=== PATIENT | female | born 1960 | race Two or more races ===

== ENCOUNTER 2017-10-12 16:32 | Inpatient (IN) | payer MEDICAID ==
--- NOTE | 2017-10-12 17:07 | ED Physician Chart ---
ED Chief Complaint/HPI - Patient Information Date Seen:: 10/12/17 Time Seen:: 17:00 Chief Complaint:: Fever History of Present Illness:: onset x 2 days of fever, chills, weakness, and palpitations; no report of trauma , H/As, S/T, neck pain, C/P, SOB, Abd. Pain, A/N/V/D/C, or urinary s/s Allergies:: Allergies Allergy/AdvReac Type Severity Reaction Status Date / Time codeine Allergy Verified 10/12/17 16:57 Penicillins [PCN] Allergy Verified 10/12/17 16:57 Historian:: Patient, EMS Review:: Nurse's Note Reviewed, Old Chart Reviewed, EMS run form Reviewed <Vinod Loera - Last Filed: 10/12/17 17:46> - Patient Information Allergies:: Allergies Allergy/AdvReac Type Severity Reaction Status Date / Time codeine Allergy Verified 10/12/17 16:57 Penicillins [PCN] Allergy Verified 10/12/17 16:57 <Dia Cifuentes - Last Filed: 10/15/17 20:23> ED Review of Systems - Review of Systems General/Constitutional: Fever, Chills, No weight loss, Weakness, No diaphoresis , No edema, No loss of appetite Skin: No skin lesions, No rash, No bruising Head: No headache, No light-headedness Eyes: No loss of vision, No pain, No diplopia ENT: No earache, No nasal drainage, No sore throat, No tinnitus Neck: No neck pain, No swelling, No thyromegaly, No stiffness, No mass noted Cardio Vascular: No chest pain, Palpitations, No PND, No orthopnea, No edema Pulmonary: No SOB, No cough, No sputum, No wheezing GI: No nausea, No vomiting, No diarrhea, No pain, No melena, No hematochezia, No constipation, No hematemesis G/U: No dysuria, No frequency, No hematuria, No nacturia Product Marketing Executive: No vaginal discharge, No abnormal vaginal bleed, No contraction Musculoskeletal: No bone or joint pain, No back pain, No muscle pain Endocrine: No polyuria, No polydipsia Psychiatric: No prior psych history, No depression, No anxiety, No suicidal ideation, No homicidal ideation, No auditory hallucination, No visual hallucination Hematopoietic: No bruising, No lymphadenopathy Allergic/Immuno: No urticaria, No angioedema Neurological: No syncope, No focal symptoms, Weakness, No paresthesia, No headache, No seizure, No dizziness, Confusion, No vertigo <Vinod Loera - Last Filed: 10/12/17 17:46> ED Past Medical History - Past Medical History Obtainable: Yes Past Medical History: HTN, DM, CAD, PUD/GERD, Seizures, Dementia, Other (CP) Family History: HTN Social History: Non Smoker, No Alcohol, No Drug Use, Single, Care Facility Surgical History: PEG/GTube Psychiatricy History: Dementia Medication: Reviewed <Vinod Loera - Last Filed: 10/12/17 17:46> Family Medical History - Family Member Mother History Unknown: Yes <Vinod Loera - Last Filed: 10/12/17 17:46> ED Physical Exam - Physical Examination General/Constitutional: Awake, Well-developed, well-nourished, Alert, No distress, GCS 15, Non-toxic appearing, Ambulatory Head: Atraumatic Eyes: Lids, conjuctiva normal, PERRL, EOMI Skin: Nl inspection, No rash, No skin lesions, No ecchymosis, Well hydrated, No lymphadenopathy ENMT: External ears, nose nl, TM canals nl, Nasal exam nl, Lips, teeth, gums nl , Oropharynx nl, Tonsils nl Neck: Nontender, Full ROM w/o pain, No JVD, No nuchal rigidity, No bruit, No mass, No stridor Respiratory: Nl effort/Exclusion, Clear to Auscultation, No Wheeze/Rhonchi/Rales Cardio Vascular: No murmur, gallop, rubs, NL S1 S2, Carotid/Femoral/Distal pulses equal bilaterally Other Cardio Vascular comments:: Irregular Irregular Rhythm GI: No tenderness/rebounding/guarding, No organomegaly, No hernia, Normal BS's, Nondistended, No mass/bruits, No McBurney tenderness : No CVA tenderness Extremities: No tenderness or effusion, Full ROM, normal strength in all extremities, No edema, Normal digits & nails Neuro/Psych: Alert/oriented, DTR's symmetric, Normal sensory exam, Normal motor strength, Judgement/insight normal, Mood normal, Normal gait, No focal deficits Misc: Normal back, No paraspinal tenderness <Vinod Loera - Last Filed: 10/12/17 17:46> ED Labs/Radiology/EKG Results - EKG Interpretations EKG Time:: 17:14 Rate & Rhythm: 147; Atrial Fibrillation Comments:: non-specific st-t changes <Vinod Loera - Last Filed: 10/12/17 17:46> - Lab Results Results: Laboratory Tests 10/12/17 10/12/17 10/12/17 16:48 17:25 17:25 WBC 4.3 L RBC 3.41 L Hgb 11.3 L Hct 33.2 L MCV 97.4 MCH 33.0 H MCHC Differential 33.9 RDW 12.8 Plt Count 88 L MPV 11.5 Neutrophils % 73.3 Lymphocytes % 15.8 L Monocytes % 8.7 Eosinophils % 1.0 Basophils % 1.2 PT 9.9 INR 0.95 PTT (Actin FS) 30.3 Sodium Potassium Chloride Carbon Dioxide Anion Gap BUN Creatinine Est GFR ( Amer) Est GFR (Non-Af Amer) BUN/Creatinine Ratio Glucose Whole Bld Lactic Acid Calcium Total Bilirubin AST ALT Alkaline Phosphatase Creatine Kinase Troponin I Total Protein Albumin Globulin Albumin/Globulin Ratio Amylase Lipase Serum , Qual NEGATIVE Urine Source Urine Color Urine Clarity Urine pH Ur Specific [place] Urine Protein Urine Glucose (UA) Urine Ketones Urine Blood Urine Nitrate Urine Bilirubin Urine Urobilinogen Ur Leukocyte Esterase Urine RBC Urine WBC Ur Epithelial Cells Urine Bacteria 10/12/17 10/12/17 10/12/17 17:25 17:25 17:53 WBC RBC Hgb Hct MCV MCH MCHC Differential RDW Plt Count MPV Neutrophils % Lymphocytes % Monocytes % Eosinophils % Basophils % PT INR PTT (Actin FS) Sodium 149 H Potassium 4.1 Chloride 108 H Carbon Dioxide 34.0 H Anion Gap 11.1 BUN 79 H Creatinine 2.7 H Est GFR ( Amer) 23.4 Est GFR (Non-Af Amer) 19.3 BUN/Creatinine Ratio 29.3 Glucose 138 H Whole Bld Lactic Acid 1.17 Calcium 9.9 Total Bilirubin 0.5 AST 13 ALT 15 Alkaline Phosphatase 72 Creatine Kinase 11 L Troponin I 0.02 Total Protein 7.5 Albumin 3.2 L Globulin 4.3 Albumin/Globulin Ratio 0.7 L Amylase 35 Lipase 26 Serum , Qual Urine Source Urine Color Urine Clarity Urine pH Ur Specific [place] Urine Protein Urine Glucose (UA) Urine Ketones Urine Blood Urine Nitrate Urine Bilirubin Urine Urobilinogen Ur Leukocyte Esterase Urine RBC Urine WBC Ur Epithelial Cells Urine Bacteria 10/12/17 19:30 WBC RBC Hgb Hct MCV MCH MCHC Differential RDW Plt Count MPV Neutrophils % Lymphocytes % Monocytes % Eosinophils % Basophils % PT INR PTT (Actin FS) Sodium Potassium Chloride Carbon Dioxide Anion Gap BUN Creatinine Est GFR ( Amer) Est GFR (Non-Af Amer) BUN/Creatinine Ratio Glucose Whole Bld Lactic Acid Calcium Total Bilirubin AST ALT Alkaline Phosphatase Creatine Kinase Troponin I Total Protein Albumin Globulin Albumin/Globulin Ratio Amylase Lipase Serum , Qual Urine Source CLEAN C Urine Color YELLOW Urine Clarity HAZY Urine pH 8.5 Ur Specific [place] 1.015 Urine Protein 100 H Urine Glucose (UA) NEGATIVE Urine Ketones NEGATIVE Urine Blood LARGE H Urine Nitrate NEGATIVE Urine Bilirubin NEGATIVE Urine Urobilinogen 0.2 Ur Leukocyte Esterase LARGE H Urine RBC 5-10 H Urine WBC 10-25 H Ur Epithelial Cells FEW Urine Bacteria 3+ H - Radiology Results Results: CXR: left lower lung basal density, increased lung markings, cardiomegaly <Dia Cifuentes - Last Filed: 10/15/17 20:23> ED Septic Shock - . Is Septic Shock (SBP<90, OR Lactate>4 mmol\L) present?: No <Vinod Loera - Last Filed: 10/12/17 17:46> - . Is Septic Shock (SBP<90, OR Lactate>4 mmol\L) present?: No <Dia Cifuentes - Last Filed: 10/15/17 20:23> ED Reassessment (Disposition) - Reassessment Reassessment Condition:: Improved - Diagnosis Diagnosis:: Fever; Palpitations; Atrial Fibrillation; Dehydration; Leukopenia; Anemia; Pre- Renal Azotemia; Hypernatremia <Vinod Loera - Last Filed: 10/12/17 17:46> - Reassessment Reassessment:: Urinary tract infection - Patient Disposition Discharge/Transfer:: Acute Care w/in this hosp Admitting Medical Physician:: Earl Stack <Dia Cifuentes - Last Filed: 10/15/17 20:23>
[2017-10-12 17:35] LABS: % BASOPHILS 1.2 % (0.0-2.0); % LYMPHOCYTES 15.8 % (20.0-50.0); % MONOCYTES 8.7 % (2.0-10.0); % NEUTROPHILS 73.3 % (40.0-80.0); BASOPHILE ABSOLUTE 0.1 Th/cumm (0-0.2); HEMATOCRIT 33.2 % (41.0-60); HEMOGLOBIN 11.3 gm/dL (12-16); LYMPHOCYTE ABSOLUTE 0.7 Th/cmm (1.5-3.0); MEAN CELL VOLUME 97.4 fl (81-100); MEAN CORPUSCULAR HGB CONC 33.9 pg (28.0-36.0); MEAN PLATELET VOLUME 11.5 fl; MONOCYTE ABSOLUTE 0.4 Th/cmm (0.3-1.0); NEUTROPHILE ABSOLUTE 3.1 Th/cmm (1.8-8.0); PLATELET COUNT 88 Th/cmm (150-400); RED BLOOD COUNT 3.41 Mil/cmm (3.80-5.10); RED CELL DISTRIBUTION WIDTH 12.8 % (11.5-20.0); WHITE BLOOD COUNT 4.3 Th/cmm (4.8-10.8)
[2017-10-12 17:44] LABS: INR 0.95 (0.5-1.4); PROTHROMBIN TIME (TEST) 9.9 SECONDS (9.5-11.5)
[2017-10-12 17:47] LABS: ALB/GLOB RATIO 0.7 (1.0-1.8); ALBUMIN 3.2 gm/dL (3.7-5.3); ANION GAP 11.1 (7.0-16.0); BILIRUBIN,TOTAL 0.5 mg/dL (0.3-1.0); CALCIUM SERUM 9.9 mg/dL (8.6-10.3); CREATININE - SERUM 2.7 mg/dL (0.6-1.2); GFR AFRICAN-AMERICAN 23.4 ml/min (>90); GFR NON AFRICAN-AMERICAN 19.3 ml/min; POTASSIUM SERUM 4.1 mEq/L (3.5-5.1); TOTAL PROTEIN,SERUM 7.5 gm/dL (6.0-8.3)
[2017-10-12] MEDS ORDERED: Sodium Chloride 0.9% 500 ML IV ONE (17:53)
[2017-10-12] MEDS ORDERED: Diltiazem 5 mg/mL 5mL Vial IVP STA (17:54)
[2017-10-12 17:56] LABS: TROP I 0.02 ng/mL (0.01-0.05)
[2017-10-12] MEDS ORDERED: Diltiazem 5 mg/mL 5mL Vial IVP ONE (18:08)
[2017-10-12 18:14] LABS: AMYLASE SERUM 35 U/L (29-103); LIPASE 26 U/L (11-82)
[2017-10-12] MEDS ORDERED: Sodium Chloride 0.9% 1,000 ML IV ONE (18:17)
[2017-10-12] MEDS ORDERED: Levofloxacin 750mg/150mL 750 MG/150 ML BAG IV ONE ×2 (19:16→19:22)
[2017-10-12 19:39] LABS: URINE SOURCE CLEAN C
[2017-10-12 19:41] LABS: URINE BILIRUBIN NEGATIVE (NEGATIVE); URINE BLOOD LARGE (NEGATIVE); URINE GLUCOSE (UA) NEGATIVE (NEGATIVE); URINE KETONE NEGATIVE (NEGATIVE); URINE LEUKOCYTE ESTERASE LARGE (NEGATIVE); URINE MICROSCOPIC INDICATED? YES; URINE NITRATE NEGATIVE (NEGATIVE); URINE PH 8.5 (4.6 - 8.0); URINE PROTEIN 100 mg/dL (NEGATIVE); URINE UROBILINOGEN 0.2 E.U./dL (0.2 - 1.0)
[2017-10-12 19:45] LABS: URINE CLARITY HAZY (CLEAR); URINE COLOR YELLOW
[2017-10-12 19:47] LABS: URINE BACTERIA 3+ /hpf (NONE SEEN); URINE EPITHELIAL CELLS FEW /lpf (FEW)
[2017-10-12] MEDS ORDERED: guaiFENesin 200 MG/10 ML UDC PO PRN (20:44)
[2017-10-12] MEDS ORDERED: Maalox 30 mL Cup PO PRN (20:44)
[2017-10-12] MEDS ORDERED: Albuterol Nebulizer 2.5mg/3mL HHN PRN (20:44)
[2017-10-12] MEDS ORDERED: D5-0.9%NS 1,000 ML IV SCH (20:45)
[2017-10-12] MEDS: D5-0.45NS 1,000 ML IV SCH (23:28)
[2017-10-13] MEDS ORDERED: Pneumococcal Vaccine 0.5 mL Vial IM ONE (00:23)
[2017-10-13 03:54] VITALS: BP 116/67
--- NOTE | 2017-10-13 08:31 | Diagnostic Imaging Report ---
CHEST X-RAY: AP view INDICATION: Fever COMPARISON: None FINDINGS: Increased interstitial lung markings are noted suggestive of chronic lung changes. Left lower lungs with subsegmental atelectasis is noted. Slight increased left basal density is noted. Suboptimal lung volume the noted. Cardiomegaly is noted with atherosclerosis. Degenerative changes of spine are noted with scoliosis. Degenerative changes of the shoulders are also noted. IMPRESSION: Increased interstitial lung markings suggestive of chronic lung changes. No evidence of CHF. Left lower lung zone subsegmental atelectasis versus scarring. Left basal density probably related to superimposition of soft tissues. A small left pleural effusion is considered less likely. Faint Infiltrate is also considered less likely. Cardiomegaly and atherosclerotic vascular disease.
[2017-10-13] MEDS ORDERED: Multivitamin w/ Minerals 15 mL UDC GT SCH (09:00)
[2017-10-13] MEDS: Multivitamin w/ Minerals Tab GT SCH (09:04)
[2017-10-13] MEDS: D5-0.45NS 1,000 ML IV SCH ×2 (12:24→21:22)
--- NOTE | 2017-10-13 13:32 | Internal Medicine Prog Note ---
Internal Medicine Subjective - Subjective Service Date: 10/13/17 ([id number]) Internal Medicine Objective - Results Result Diagrams: 10/12/17 17:25 10/12/17 17:25 Recent Labs: Laboratory Last Values WBC 4.3 Th/cmm (4.8-10.8) L 10/12/17 17:25 RBC 3.41 Mil/cmm (3.80-5.10) L 10/12/17 17:25 Hgb 11.3 gm/dL (12-16) L 10/12/17 17:25 Hct 33.2 % (41.0-60) L 10/12/17 17:25 MCV 97.4 fl (81-100) 10/12/17 17:25 MCH 33.0 pg (27.0-31.0) H 10/12/17 17:25 MCHC Differential 33.9 pg (28.0-36.0) 10/12/17 17:25 RDW 12.8 % (11.5-20.0) 10/12/17 17:25 Plt Count 88 Th/cmm (150-400) L 10/12/17 17:25 MPV 11.5 fl 10/12/17 17:25 Neutrophils % 73.3 % (40.0-80.0) 10/12/17 17:25 Lymphocytes % 15.8 % (20.0-50.0) L 10/12/17 17:25 Monocytes % 8.7 % (2.0-10.0) 10/12/17 17:25 Eosinophils % 1.0 % (0.0-5.0) 10/12/17 17:25 Basophils % 1.2 % (0.0-2.0) 10/12/17 17:25 PT 9.9 SECONDS (9.5-11.5) 10/12/17 17:25 INR 0.95 (0.5-1.4) 10/12/17 17:25 PTT (Actin FS) 30.3 SECONDS (26.0-38.0) 10/12/17 17:25 Sodium 149 mEq/L (136-145) H 10/12/17 17:25 Potassium 4.1 mEq/L (3.5-5.1) 10/12/17 17:25 Chloride 108 mEq/L (98-107) H 10/12/17 17:25 Carbon Dioxide 34.0 mEq/L (21.0-31.0) H 10/12/17 17:25 Anion Gap 11.1 (7.0-16.0) 10/12/17 17:25 BUN 79 mg/dL (7-25) H 10/12/17 17:25 Creatinine 2.7 mg/dL (0.6-1.2) H 10/12/17 17:25 Est GFR ( Amer) 23.4 ml/min (>90) 10/12/17 17:25 Est GFR (Non-Af Amer) 19.3 ml/min 10/12/17 17:25 BUN/Creatinine Ratio 29.3 10/12/17 17:25 Glucose 138 mg/dL (70-105) H 10/12/17 17:25 Whole Bld Lactic Acid 1.17 mmol/L (0.60-1.99) 10/12/17 17:25 Calcium 9.9 mg/dL (8.6-10.3) 10/12/17 17:25 Total Bilirubin 0.5 mg/dL (0.3-1.0) 10/12/17 17:25 AST 13 U/L (13-39) 10/12/17 17:25 ALT 15 U/L (7-52) 10/12/17 17:25 Alkaline Phosphatase 72 U/L (34-104) 10/12/17 17:25 Creatine Kinase 11 U/L (30-223) L 10/12/17 17:25 Troponin I 0.02 ng/mL (0.01-0.05) 10/12/17 17:25 Total Protein 7.5 gm/dL (6.0-8.3) 10/12/17 17:25 Albumin 3.2 gm/dL (3.7-5.3) L 10/12/17 17:25 Globulin 4.3 gm/dL 10/12/17 17:25 Albumin/Globulin Ratio 0.7 (1.0-1.8) L 10/12/17 17:25 Amylase 35 U/L (29-103) 10/12/17 17:53 Lipase 26 U/L (11-82) 10/12/17 17:53 Serum , Qual NEGATIVE (NEGATIVE) 10/12/17 16:48 Urine Source CLEAN C 10/12/17 19:30 Urine Color YELLOW 10/12/17 19:30 Urine Clarity HAZY (CLEAR) 10/12/17 19:30 Urine pH 8.5 (4.6 - 8.0) 10/12/17 19:30 Ur Specific [place] 1.015 (1.005-1.030) 10/12/17 19:30 Urine Protein 100 mg/dL (NEGATIVE) H 10/12/17 19:30 Urine Glucose (UA) NEGATIVE mg/dL (NEGATIVE) 10/12/17 19:30 Urine Ketones NEGATIVE mg/dL (NEGATIVE) 10/12/17 19:30 Urine Blood LARGE (NEGATIVE) H 10/12/17 19:30 Urine Nitrate NEGATIVE (NEGATIVE) 10/12/17 19:30 Urine Bilirubin NEGATIVE (NEGATIVE) 10/12/17 19:30 Urine Urobilinogen 0.2 E.U./dL (0.2 - 1.0) 10/12/17 19:30 Ur Leukocyte Esterase LARGE (NEGATIVE) H 10/12/17 19:30 Urine RBC 5-10 /hpf (0-5) H 10/12/17 19:30 Urine WBC 10-25 /hpf (0-5) H 10/12/17 19:30 Ur Epithelial Cells FEW /lpf (FEW) 10/12/17 19:30 Urine Bacteria 3+ /hpf (NONE SEEN) H 10/12/17 19:30 - Physical Exam Vitals and I&O: Vital Signs Temp 97.0 F 10/13/17 12:00 Pulse 118 10/13/17 12:00 Resp 17 10/13/17 12:00 BP 117/78 10/13/17 12:00 Pulse Ox 98 10/13/17 12:00 Intake & Output 10/12/17 10/13/17 10/13/17 18:59 06:59 18:59 Intake Total 150 1000 Balance 150 1000 Weight (lbs) 185 lb 188 lb Intake: Intake, IV Amount 150 1000 D5-0.45NS 1,000 ml @ 100 1000 mls/hr IV .Q10H [facility] Rx#: [id number] Levofloxacin 750mg/150mL 150 750 mg In 150 ml @ 100 mls/hr IV X1 ONE Rx#: [id number] Other: Weight Source Patient stated Patient stated Active Medications: Current Medications Acetaminophen (Tylenol) 650 mg PO Q4H PRN PRN Reason: PAIN/TEM>100 Stop: 12/11/17 21:08 Acetaminophen (Tylenol) 650 mg PO Q4H PRN PRN Reason: Pain Or Fever above 101 Stop: 12/11/17 20:46 Al Hydrox/Mg Hydrox/Simethicone (Maalox) 30 ml PO Q6H PRN PRN Reason: Dyspepsia Stop: 12/11/17 20:43 Albuterol Sulfate (Albuterol 2.5mg/3ml Neb Ud) 2.5 mg HHN Q2HRT PRN PRN Reason: Shortness of Breath or Wheeze Stop: 12/11/17 20:43 Diltiazem HCl (Cardizem) 90 mg PO Q8HR [facility] Stop: 12/12/17 20:59 Docusate Sodium (Colace) 100 mg PO BID [facility] Stop: 12/12/17 08:59 Last Admin: 10/13/17 09:04 Dose: 100 mg Ferrous Sulfate (Iron) 450 mg GT DAILY [facility] Stop: 12/12/17 13:59 Guaifenesin (Robitussin) 200 mg PO Q4HR PRN PRN Reason: Cough or Congestion Stop: 12/11/17 20:43 Levofloxacin (Levaquin Pb) 500 mg in 100 mls @ 100 mls/hr IV Q48HR [facility] Stop: 12/13/17 19:59 Dextrose/Sodium Chloride (D5-0.45ns) 1,000 mls @ 100 mls/hr IV .Q10H [facility] Stop: 12/11/17 20:59 Last Admin: 10/13/17 12:24 Dose: 100 mls/hr Lacosamide (Vimpat) 200 mg GT BID [facility] Stop: 12/12/17 16:59 Lorazepam (Ativan) 1 mg IV Q4H PRN; Protocol PRN Reason: Seizure Stop: 12/11/17 20:43 Ondansetron HCl (Zofran) 4 mg IV Q8H PRN PRN Reason: Nausea / Vomiting Stop: 12/11/17 20:46 Pantoprazole Sodium (Protonix) 40 mg GT DAILY [facility] Stop: 12/12/17 13:59 Quetiapine Fumarate (Seroquel) 25 mg GT DAILY [facility]; Protocol Stop: 12/12/17 08:59 Last Admin: 10/13/17 09:04 Dose: 25 mg Senna (Senna) 17.2 mg GT HS [facility] Stop: 12/11/17 20:59 Last Admin: 10/12/17 23:29 Dose: 17.2 mg
[2017-10-13] MEDS: Pantoprazole 40 mg/Packet GT SCH (13:35)
[2017-10-13] MEDS: Ferrous Sulfate 300 MG/5 ML UDC GT SCH (13:35)
[2017-10-13] MEDS ORDERED: Metoprolol tartrate 1 mg/ml 5mL Amp IV PRN (14:47)
--- NOTE | 2017-10-13 14:51 | History & Physical ---
ADMIT DATE: 10/13/2017 CHIEF COMPLAINT: Fever. HISTORY OF PRESENT ILLNESS: This is a 56-year-old female who is a resident of [facility] who has a 2-day history of fevers associated with weakness. For further management, the patient is now admitted here to the telemetry unit. PAST MEDICAL HISTORY: Hypertension, diabetes, CAD, GERD, seizures, dementia, cerebral palsy, and AFib. FAMILY HISTORY: Noncontributory. SOCIAL HISTORY: The patient is a long term resident requiring 24-hour nursing care. PAST SURGICAL HISTORY: PEG. MEDICATIONS: Please see medication list. REVIEW OF SYSTEMS: Unable to obtain, the patient is nonverbal. PHYSICAL EXAMINATION: GENERAL: The patient is well-developed, well-nourished, no apparent distress. VITAL SIGNS: Temperature 97.0, heart rate 118, blood pressure 117/78, respirations 17, O2 98%. HEENT: Head normocephalic, atraumatic. NECK: Supple. No mass. LUNGS: Clear bilaterally. HEART: Regular rate and rhythm. ABDOMEN: Soft, nontender, nondistended. LABORATORY DATA: WBC 4.3, H and H 11.3 and 33.2, platelet 88. Sodium 149, potassium 4.1, chloride 108, BUN 79, creatinine 2.7, glucose of 138. The patient had a urinalysis done, positive for UTI. DIAGNOSTICS: The patient had a chest x-ray done, impression is increased interstitial lung marking suggestive of chronic lung changes, no evidence of CHF, left lower lung zones subsegmental atelectasis versus scarring, left basal density probably related to superimposition of the soft tissue. Small left pleural effusion considered less likely. Faint infiltrate is also considered less likely, cardiomegaly and atherosclerotic vascular disease. ASSESSMENT: Acute urinary tract infection, sepsis, possible pneumonia, tachycardia, history of atrial fibrillation, acute renal insufficiency, rule out dehydration, leukopenia, acute urinary tract infection, mild protein-calorie malnutrition, cerebral palsy, hypertension, diabetes, GERD, seizures, dementia. PLAN: The patient will be admitted to the telemetry unit. We will get metal dresser on the case due to aggressive IV fluids for hydration. If the patient's BUN and creatinine does not improve with IV fluids, we will add Nephrology on the case. In the meantime, we will order a renal ultrasound. We will keep the patient on empiric IV antibiotics of Levaquin. We will send urine for culture. We will continue to follow this patient. [facility]# [id number]
[2017-10-13] MEDS ORDERED: Metoprolol tartrate 1 mg/ml 5mL Amp IV ONE (15:00)
[2017-10-13] MEDS: Diltiazem 30 mg Tab PO SCH (17:10)
[2017-10-13] MEDS ORDERED: Diltiazem 30 mg Tab PO SCH (21:00)
--- NOTE | 2017-10-13 22:34 | Consultation ---
DATE OF CONSULTATION: 10/12/[address] Stack. HISTORY AND PHYSICAL: This is a 56-year-old female patient with cerebral palsy, came to the Emergency Room because of weakness, tiredness, fever. The patient had uncontrolled atrial fibrillation and hence cardiac consult is requested. The patient is a poor historian. PAST MEDICAL HISTORY: Cerebral palsy, hypertension and atrial fibrillation, peptic ulcer disease, seizure disorder, cerebral palsy, dementia, anemia. FAMILY HISTORY: Unremarkable. SOCIAL HISTORY: No history of smoking, alcohol abuse. ALLERGIES: No known allergies. PHYSICAL EXAMINATION: VITAL SIGNS: Blood pressure 120/80; pulse 130, irregular; and respirations 28. HEAD: Normocephalic. No lumps or bumps. EYES: Pupils equal, reactive to light. Fundi show AV nicking, sclerae white, conjunctivae pink. NECK: Carotid 2+. Normal upstroke. JVD flat. Thyroid not palpable. LYMPH NODES: Not palpable. CHEST: Shows increased AP diameter. No kyphosis, scoliosis. LUNGS: Bilateral rales. Decreased breath sounds in both bases. HEART: PMI sixth intercostal space with [id number] line. EXTREMITIES: Peripheral pulse is 1+, pedal edema 1+. CLINICAL DIAGNOSES: 1. Atrial fibrillation with rapid ventricular response. 2. Cerebral palsy. 3. Hypertension, peptic ulcer disease, seizure disorder, depression, iron-deficiency anemia, osteoporosis. PLAN: The patient to continue present medication. Continue present care. The patient will be given Cardizem, Lopressor IV for controlling the blood pressure, also get an echocardiogram. JOB# [id number]
[2017-10-14] MEDS: Diltiazem 30 mg Tab PO SCH ×4 (00:59→18:15)
[2017-10-14 05:02] LABS: % BASOPHILS 0.6 % (0.0-2.0); % EOSINOPHILS 3.5 % (0.0-5.0); % LYMPHOCYTES 11.2 % (20.0-50.0); % MONOCYTES 4.8 % (2.0-10.0); % NEUTROPHILS 79.9 % (40.0-80.0); EOSINOPHILE ABSOLUTE 0.2 Th/cmm (0.1-0.4); HEMATOCRIT 28.2 % (41.0-60); HEMOGLOBIN 9.5 gm/dL (12-16); LYMPHOCYTE ABSOLUTE 0.5 Th/cmm (1.5-3.0); MEAN CELL VOLUME 98.3 fl (81-100); MEAN CORPUSCULAR HEMOGLOBIN 33.3 pg (27.0-31.0); MEAN CORPUSCULAR HGB CONC 33.9 pg (28.0-36.0); MEAN PLATELET VOLUME 12.8 fl; MONOCYTE ABSOLUTE 0.2 Th/cmm (0.3-1.0); PLATELET COUNT 95 Th/cmm (150-400); RED BLOOD COUNT 2.86 Mil/cmm (3.80-5.10); RED CELL DISTRIBUTION WIDTH 12.6 % (11.5-20.0); WHITE BLOOD COUNT 4.9 Th/cmm (4.8-10.8)
[2017-10-14 05:45] LABS: CALCIUM SERUM 9.3 mg/dL (8.6-10.3); GFR NON AFRICAN-AMERICAN 27.3 ml/min; MAGNESIUM 2.2 mg/dL (1.9-2.7)
[2017-10-14] MEDS: Ferrous Sulfate 300 MG/5 ML UDC GT SCH (08:31)
[2017-10-14] MEDS: Multivitamin w/ Minerals Tab GT SCH (08:32)
[2017-10-14] MEDS: Pantoprazole 40 mg/Packet GT SCH (08:32)
[2017-10-14] MEDS: D5-0.45NS 1,000 ML IV SCH ×2 (08:33→13:56)
--- NOTE | 2017-10-14 12:41 | Internal Medicine Prog Note ---
Internal Medicine Subjective - Subjective Service Date: 10/14/17 Patient seen and examined:: with staff Patient is:: awake, non-verbal Per staff patient has:: tolerating meds Internal Medicine Objective - Results Result Diagrams: 10/14/17 04:45 10/14/17 04:45 Recent Labs: Laboratory Last Values WBC 4.9 Th/cmm (4.8-10.8) 10/14/17 04:45 RBC 2.86 Mil/cmm (3.80-5.10) L 10/14/17 04:45 Hgb 9.5 gm/dL (12-16) L 10/14/17 04:45 Hct 28.2 % (41.0-60) L 10/14/17 04:45 MCV 98.3 fl (81-100) 10/14/17 04:45 MCH 33.3 pg (27.0-31.0) H 10/14/17 04:45 MCHC Differential 33.9 pg (28.0-36.0) 10/14/17 04:45 RDW 12.6 % (11.5-20.0) 10/14/17 04:45 Plt Count 95 Th/cmm (150-400) L 10/14/17 04:45 MPV 12.8 fl 10/14/17 04:45 Neutrophils % 79.9 % (40.0-80.0) 10/14/17 04:45 Lymphocytes % 11.2 % (20.0-50.0) L 10/14/17 04:45 Monocytes % 4.8 % (2.0-10.0) 10/14/17 04:45 Eosinophils % 3.5 % (0.0-5.0) 10/14/17 04:45 Basophils % 0.6 % (0.0-2.0) 10/14/17 04:45 PT 9.9 SECONDS (9.5-11.5) 10/12/17 17:25 INR 0.95 (0.5-1.4) 10/12/17 17:25 PTT (Actin FS) 30.3 SECONDS (26.0-38.0) 10/12/17 17:25 Sodium 147 mEq/L (136-145) H 10/14/17 04:45 Potassium 4.0 mEq/L (3.5-5.1) 10/14/17 04:45 Chloride 112 mEq/L (98-107) H 10/14/17 04:45 Carbon Dioxide 31.0 mEq/L (21.0-31.0) 10/14/17 04:45 Anion Gap 8.0 (7.0-16.0) 10/14/17 04:45 BUN 67 mg/dL (7-25) H 10/14/17 04:45 Creatinine 2.0 mg/dL (0.6-1.2) H 10/14/17 04:45 Est GFR ( Amer) 33.0 ml/min (>90) 10/14/17 04:45 Est GFR (Non-Af Amer) 27.3 ml/min 10/14/17 04:45 BUN/Creatinine Ratio 33.5 10/14/17 04:45 Glucose 136 mg/dL (70-105) H 10/14/17 04:45 Whole Bld Lactic Acid 1.17 mmol/L (0.60-1.99) 10/12/17 17:25 Calcium 9.3 mg/dL (8.6-10.3) 10/14/17 04:45 Magnesium 2.2 mg/dL (1.9-2.7) 10/14/17 04:45 Total Bilirubin 0.5 mg/dL (0.3-1.0) 10/12/17 17:25 AST 13 U/L (13-39) 10/12/17 17:25 ALT 15 U/L (7-52) 10/12/17 17:25 Alkaline Phosphatase 72 U/L (34-104) 10/12/17 17:25 Ammonia 39 umol/L (16-53) 10/14/17 06:00 Creatine Kinase 11 U/L (30-223) L 10/12/17 17:25 Troponin I 0.02 ng/mL (0.01-0.05) 10/12/17 17:25 B-Natriuretic Peptide 188.0 pg/mL (5.0-100.0) H 10/14/17 04:45 Total Protein 7.5 gm/dL (6.0-8.3) 10/12/17 17:25 Albumin 3.2 gm/dL (3.7-5.3) L 10/12/17 17:25 Globulin 4.3 gm/dL 10/12/17 17:25 Albumin/Globulin Ratio 0.7 (1.0-1.8) L 10/12/17 17:25 Amylase 35 U/L (29-103) 10/12/17 17:53 Lipase 26 U/L (11-82) 10/12/17 17:53 Serum , Qual NEGATIVE (NEGATIVE) 10/12/17 16:48 Urine Source CLEAN C 10/12/17 19:30 Urine Color YELLOW 10/12/17 19:30 Urine Clarity HAZY (CLEAR) 10/12/17 19:30 Urine pH 8.5 (4.6 - 8.0) 10/12/17 19:30 Ur Specific [place] 1.015 (1.005-1.030) 10/12/17 19:30 Urine Protein 100 mg/dL (NEGATIVE) H 10/12/17 19:30 Urine Glucose (UA) NEGATIVE mg/dL (NEGATIVE) 10/12/17 19:30 Urine Ketones NEGATIVE mg/dL (NEGATIVE) 10/12/17 19:30 Urine Blood LARGE (NEGATIVE) H 10/12/17 19:30 Urine Nitrate NEGATIVE (NEGATIVE) 10/12/17 19:30 Urine Bilirubin NEGATIVE (NEGATIVE) 10/12/17 19:30 Urine Urobilinogen 0.2 E.U./dL (0.2 - 1.0) 10/12/17 19:30 Ur Leukocyte Esterase LARGE (NEGATIVE) H 10/12/17 19:30 Urine RBC 5-10 /hpf (0-5) H 10/12/17 19:30 Urine WBC 10-25 /hpf (0-5) H 10/12/17 19:30 Ur Epithelial Cells FEW /lpf (FEW) 10/12/17 19:30 Urine Bacteria 3+ /hpf (NONE SEEN) H 10/12/17 19:30 - Physical Exam Vitals and I&O: Vital Signs Temp 97.0 F 10/14/17 11:59 Pulse 65 10/14/17 11:59 Resp 18 10/14/17 11:59 BP 112/63 10/14/17 11:59 Pulse Ox 93 10/14/17 11:59 Intake & Output 10/13/17 10/14/17 10/14/17 18:59 06:59 18:59 Intake Total 2323.333 288.333 520 Balance 2323.333 288.333 520 Weight (lbs) 188 lb 188 lb Intake: Intake, IV Amount 1608.333 288.333 D5-0.45NS 1,000 ml @ 100 1608.333 288.333 mls/hr IV .Q10H [facility] Rx#: [id number] Tube Feeding 715 520 Other: # Voids 3 3 Weight Source Estimated Bedscale Active Medications: Current Medications Acetaminophen (Tylenol) 650 mg PO Q4H PRN PRN Reason: PAIN/TEMP >100 Stop: 12/11/17 21:08 Al Hydrox/Mg Hydrox/Simethicone (Maalox) 30 ml PO Q6H PRN PRN Reason: Dyspepsia Stop: 12/11/17 20:43 Albuterol Sulfate (Albuterol 2.5mg/3ml Neb Ud) 2.5 mg HHN Q2HRT PRN PRN Reason: Shortness of Breath or Wheeze Stop: 12/11/17 20:43 Amiodarone HCl (Cordarone) 200 mg PO DAILY [facility] Stop: 12/14/17 08:59 Diltiazem HCl (Cardizem) 60 mg PO Q6HR [facility] Stop: 12/12/17 17:59 Last Admin: 10/14/17 06:01 Dose: 60 mg Docusate Sodium (Colace) 100 mg PO BID [facility] Stop: 12/12/17 08:59 Last Admin: 10/14/17 08:32 Dose: 100 mg Ferrous Sulfate (Iron) 450 mg GT DAILY [facility] Stop: 12/12/17 13:59 Last Admin: 10/14/17 08:31 Dose: 450 mg Guaifenesin (Robitussin) 200 mg PO Q4HR PRN PRN Reason: Cough or Congestion Stop: 12/11/17 20:43 Levofloxacin (Levaquin Pb) 500 mg in 100 mls @ 100 mls/hr IV Q48HR [facility] Stop: 12/13/17 19:59 Dextrose/Sodium Chloride (D5-0.45ns) 1,000 mls @ 100 mls/hr IV .Q10H [facility] Stop: 12/11/17 20:59 Last Admin: 10/14/17 08:33 Dose: Not Given Lacosamide (Vimpat) 200 mg GT BID [facility] Stop: 12/12/17 16:59 Last Admin: 10/14/17 08:32 Dose: 200 mg Lorazepam (Ativan) 1 mg IV Q4H PRN; Protocol PRN Reason: Seizure Stop: 12/11/17 20:43 Metoprolol Tartrate (Lopressor) 5 mg IV Q4HR PRN PRN Reason: Tachycardia HR above 120 Stop: 12/12/17 15:59 Miscellaneous (Clinical Monitoring) 1 [facility] DAILY PRN PRN Reason: RENAL Stop: 12/12/17 15:45 Ondansetron HCl (Zofran) 4 mg IV Q8H PRN PRN Reason: Nausea / Vomiting Stop: 12/11/17 20:46 Pantoprazole Sodium (Protonix) 40 mg GT DAILY [facility] Stop: 12/12/17 13:59 Last Admin: 10/14/17 08:32 Dose: 40 mg Quetiapine Fumarate (Seroquel) 25 mg GT DAILY [facility]; Protocol Stop: 12/12/17 08:59 Last Admin: 10/14/17 08:32 Dose: 25 mg Senna (Senna) 17.2 mg GT HS [facility] Stop: 12/11/17 20:59 Last Admin: 10/13/17 21:06 Dose: 17.2 mg General: weak HEENT: NC/AT, PERRLA Neck: Supple Lungs: CTAB Cardiovascular: RRR, Normal S1, Normal S2, without murmur Abdomen: soft, non-tender, non-distended, positive bowel sound Extremities: excoriation Neurological: unable to follow command Internal Medicine Assmt/Plan - Assessment Assessment: acute uti sepsis possible pna tachycardia hx of afib acute renal insufficiency r/o dehydration leukopenia mild protein jessenia malnutrition cerebral palsy htn dm gerd seizures dementia - Plan Plan: contiue ivf for hydration monitor HR continue ivabx follow up labs in am continue current plan of care Nutritional Asmnt/Malnutr-PDOC - Dietary Evaluation Malnutrition Findings (Please click <Entered> for more info): Nutritional Asmnt/Malnutrition Start: 10/13/17 16: 02 Text: Status: Complete Freq: Protocol: Document 10/13/17 16:44 LCLYNDONG (Rec: 10/13/17 17:06 GEORGE [id number]) Nutritional Asmnt/Malnutrition Patient General Information Nutritional Screening High Risk Diagnosis UTI, Sepsis Pertinent Medical Hx/Surgical Hx HTN, DM, CAD, PUD/GERD, Seizure, demntia, CP, PEG/ Gtube Subjective Information Pt was resting in bed at time of visit, non-verbal. TF was off at this time. Per RN, Pt was tolerating TF well, no residual noted. Amilcar 11 noted. Current Diet Order/ Nutrition Support Osmolite 1.5 at 65ml x 20hr Pertinent Medications D5-0.45ns, colace, iron, levaquin, protonix, seroquel, senna Pertinent Labs 10/12 Na 149, Cl 108, BUN 79, Cr 2.7, glucose 138, Alb 3.2 Nutritional Hx/Data Height 5 ft 4 in Height (Calculated Centimeters) 162.6 Current Weight (lbs) 188 lb Weight (Calculated Kilograms) 85.3 Weight (Calculated Grams) 87302.4 [place] Body Weight 120 Body Mass Index (BMI) 32.2 Weight Status Obese GI Symptoms GI Symptoms None Last BM not indicated Difficult in: None Usual diet at home osmolite 1.5 at 65ml x 20hr at care facility per chart Skin Integrity/Comment: intact Estimated Nutritional Goals BEE in Kcals: Adj wt of IBW Calories/Kcals/Kg 25-30 based on 62kg Kcals Calculated 1393-2836 Protein: Adj wt of IBW Protein g/k.2 monitor renal labs Protein Calculated 74 Fluid: ml 1550-1860ml (1ml/kcal) Nutritional Problem 1. Problem Problem altered nutrition related lab Etiology electrolytes/fluid imbalance and hx of DM Signs/Symptoms: Na 149, Cl 108, BUN 79, Cr 2.7 , glucose 138 Malnutrition Alert Is there a minimum of two criteria No selected? Query Text:Check all the applicable criteria. A minimum of two criteria are recommended for diagnosis of either severe or non-severe malnutrition. Malnutrition Related to Morbid Obesity Malnutrition related to morbid obesity No Intervention/Recommendation Comments 1. Continue with current TF regimen. It provides 1950kcal, 82g protein, 990ml free water , meeting 100% of nutritional needs. If BUN continue high, will consider lower TF rate. 2. Monitor TF rate, tolerance, wt, skin integrity and labs 3. F/U as high risk in 2-3 days, 10/15-10/16 Expected Outcomes/Goals Expected Outcomes/Goals 1. Pt to meet at least 75% of nutritional needs via nutrition support with tolerance 2. Wt stability, skin to remain intact, labs to approach WNL.
[2017-10-14] MEDS ORDERED: Vancomycin HCl 1.5 GM in Sodium Chloride 0.9% 500 ML IV ONE (14:00)
[2017-10-14] MEDS ORDERED: Levofloxacin 500mg/100mL 500 MG/100 ML BAG IV SCH (20:00)
[2017-10-15] MEDS: Diltiazem 30 mg Tab PO SCH ×5 (00:30→23:46)
[2017-10-15] MEDS: D5-0.45NS 1,000 ML IV SCH ×2 (05:54→12:58)
[2017-10-15 07:07] LABS: % BASOPHILS 0.8 % (0.0-2.0); % EOSINOPHILS 2.7 % (0.0-5.0); % LYMPHOCYTES 9.7 % (20.0-50.0); % MONOCYTES 2.8 % (2.0-10.0); EOSINOPHILE ABSOLUTE 0.2 Th/cmm (0.1-0.4); HEMATOCRIT 29.1 % (41.0-60); LYMPHOCYTE ABSOLUTE 0.6 Th/cmm (1.5-3.0); MEAN CELL VOLUME 97.7 fl (81-100); MEAN CORPUSCULAR HEMOGLOBIN 33.5 pg (27.0-31.0); MEAN CORPUSCULAR HGB CONC 34.3 pg (28.0-36.0); MEAN PLATELET VOLUME 11.9 fl; MONOCYTE ABSOLUTE 0.2 Th/cmm (0.3-1.0); NEUTROPHILE ABSOLUTE 4.9 Th/cmm (1.8-8.0); PLATELET COUNT 129 Th/cmm (150-400); RED BLOOD COUNT 2.98 Mil/cmm (3.80-5.10); RED CELL DISTRIBUTION WIDTH 12.1 % (11.5-20.0); WHITE BLOOD COUNT 5.9 Th/cmm (4.8-10.8)
[2017-10-15 07:20] LABS: ANION GAP 7.5 (7.0-16.0); CALCIUM SERUM 9.6 mg/dL (8.6-10.3); CARBON DIOXIDE 30.3 mEq/L (21.0-31.0); CREATININE - SERUM 1.7 mg/dL (0.6-1.2); GFR AFRICAN-AMERICAN 39.8 ml/min (>90); GFR NON AFRICAN-AMERICAN 32.9 ml/min; POTASSIUM SERUM 3.8 mEq/L (3.5-5.1)
[2017-10-15] MEDS: Multivitamin w/ Minerals Tab GT SCH (08:42)
[2017-10-15] MEDS: Pantoprazole 40 mg/Packet GT SCH (08:43)
[2017-10-15] MEDS: Ferrous Sulfate 300 MG/5 ML UDC GT SCH (08:43)
--- NOTE | 2017-10-15 11:53 | Cardiology ---
10/14/[address] Earl Stack. M-MODE ECHOCARDIOGRAM: Mitral valve, anterior leaflet of mitral valve shows normal excursion, EF velocity. Posterior leaflet of the mitral valve shows normal excursion. Left ventricular posterior wall shows increased thickness, normal excursion. Interventricular septum shows increased thickness, normal excursion, hypertrophy of the left ventricle, ejection fraction 50%. Left atrium enlarged 5.5 cm. Aortic root shows normal dimension, normal excursion of aortic leaflets. CONCLUSION: Hypertrophy of the left ventricle, ejection fraction 50%. Left atrial enlargement. 2D ECHO: Long axis view showed normal-sized left ventricle with hypertrophy of the left ventricle. Left atrium enlarged. Aortic root shows normal dimension, normal excursion of aortic leaflets. Short axis view of mitral valve normal. Short axis view of aortic valve normal. Apical four chamber view showed normal-sized left ventricle with hypertrophy of the left ventricle. Left atrium enlarged. Right ventricular cavity, right atrium normal, no pericardial effusion. Ejection fraction 58%. CONCLUSION: Hypertrophy of the left ventricle, ejection fraction 50%. Left atrial enlargement. Doppler study shows mild mitral regurgitation, mild tricuspid regurgitation, right ventricular systolic pressure 44 mmHg. JOB# [id number]
[2017-10-15] MEDS ORDERED: Septra IV Per Pharmacy MC SCH (12:45)
--- NOTE | 2017-10-15 12:54 | Internal Medicine Prog Note ---
Internal Medicine Subjective - Subjective Patient is:: awake, non-verbal Per staff patient has:: tolerating meds Internal Medicine Objective - Results Result Diagrams: 10/15/17 05:50 10/15/17 05:50 Recent Labs: Laboratory Last Values WBC 5.9 Th/cmm (4.8-10.8) 10/15/17 05:50 RBC 2.98 Mil/cmm (3.80-5.10) L 10/15/17 05:50 Hgb 10.0 gm/dL (12-16) L 10/15/17 05:50 Hct 29.1 % (41.0-60) L 10/15/17 05:50 MCV 97.7 fl (81-100) 10/15/17 05:50 MCH 33.5 pg (27.0-31.0) H 10/15/17 05:50 MCHC Differential 34.3 pg (28.0-36.0) 10/15/17 05:50 RDW 12.1 % (11.5-20.0) 10/15/17 05:50 Plt Count 129 Th/cmm (150-400) L 10/15/17 05:50 MPV 11.9 fl 10/15/17 05:50 Neutrophils % 84.0 % (40.0-80.0) H 10/15/17 05:50 Lymphocytes % 9.7 % (20.0-50.0) L 10/15/17 05:50 Monocytes % 2.8 % (2.0-10.0) 10/15/17 05:50 Eosinophils % 2.7 % (0.0-5.0) 10/15/17 05:50 Basophils % 0.8 % (0.0-2.0) 10/15/17 05:50 PT 9.9 SECONDS (9.5-11.5) 10/12/17 17:25 INR 0.95 (0.5-1.4) 10/12/17 17:25 PTT (Actin FS) 30.3 SECONDS (26.0-38.0) 10/12/17 17:25 Sodium 147 mEq/L (136-145) H 10/15/17 05:50 Potassium 3.8 mEq/L (3.5-5.1) 10/15/17 05:50 Chloride 113 mEq/L (98-107) H 10/15/17 05:50 Carbon Dioxide 30.3 mEq/L (21.0-31.0) 10/15/17 05:50 Anion Gap 7.5 (7.0-16.0) 10/15/17 05:50 BUN 54 mg/dL (7-25) H 10/15/17 05:50 Creatinine 1.7 mg/dL (0.6-1.2) H 10/15/17 05:50 Est GFR ( Amer) 39.8 ml/min (>90) 10/15/17 05:50 Est GFR (Non-Af Amer) 32.9 ml/min 10/15/17 05:50 BUN/Creatinine Ratio 31.8 10/15/17 05:50 Glucose 115 mg/dL (70-105) H 10/15/17 05:50 Whole Bld Lactic Acid 1.17 mmol/L (0.60-1.99) 10/12/17 17:25 Calcium 9.6 mg/dL (8.6-10.3) 10/15/17 05:50 Magnesium 2.2 mg/dL (1.9-2.7) 10/14/17 04:45 Total Bilirubin 0.5 mg/dL (0.3-1.0) 10/12/17 17:25 AST 13 U/L (13-39) 10/12/17 17:25 ALT 15 U/L (7-52) 10/12/17 17:25 Alkaline Phosphatase 72 U/L (34-104) 10/12/17 17:25 Ammonia 39 umol/L (16-53) 10/14/17 06:00 Creatine Kinase 11 U/L (30-223) L 10/12/17 17:25 Troponin I 0.02 ng/mL (0.01-0.05) 10/12/17 17:25 B-Natriuretic Peptide 188.0 pg/mL (5.0-100.0) H 10/14/17 04:45 Total Protein 7.5 gm/dL (6.0-8.3) 10/12/17 17:25 Albumin 3.2 gm/dL (3.7-5.3) L 10/12/17 17:25 Globulin 4.3 gm/dL 10/12/17 17:25 Albumin/Globulin Ratio 0.7 (1.0-1.8) L 10/12/17 17:25 Amylase 35 U/L (29-103) 10/12/17 17:53 Lipase 26 U/L (11-82) 10/12/17 17:53 Serum , Qual NEGATIVE (NEGATIVE) 10/12/17 16:48 Urine Source CLEAN C 10/12/17 19:30 Urine Color YELLOW 10/12/17 19:30 Urine Clarity HAZY (CLEAR) 10/12/17 19:30 Urine pH 8.5 (4.6 - 8.0) 10/12/17 19:30 Ur Specific [place] 1.015 (1.005-1.030) 10/12/17 19:30 Urine Protein 100 mg/dL (NEGATIVE) H 10/12/17 19:30 Urine Glucose (UA) NEGATIVE mg/dL (NEGATIVE) 10/12/17 19:30 Urine Ketones NEGATIVE mg/dL (NEGATIVE) 10/12/17 19:30 Urine Blood LARGE (NEGATIVE) H 10/12/17 19:30 Urine Nitrate NEGATIVE (NEGATIVE) 10/12/17 19:30 Urine Bilirubin NEGATIVE (NEGATIVE) 10/12/17 19:30 Urine Urobilinogen 0.2 E.U./dL (0.2 - 1.0) 10/12/17 19:30 Ur Leukocyte Esterase LARGE (NEGATIVE) H 10/12/17 19:30 Urine RBC 5-10 /hpf (0-5) H 10/12/17 19:30 Urine WBC 10-25 /hpf (0-5) H 10/12/17 19:30 Ur Epithelial Cells FEW /lpf (FEW) 10/12/17 19:30 Urine Bacteria 3+ /hpf (NONE SEEN) H 10/12/17 19:30 Random Vancomycin 19.1 ug/mL (5.0-40.0) 10/15/17 05:50 - Physical Exam Vitals and I&O: Vital Signs Temp 97.6 F 10/15/17 04:00 Pulse 108 10/15/17 12:13 Resp 18 10/15/17 07:16 BP 142/74 10/15/17 12:13 Pulse Ox 96 10/15/17 07:16 Intake & Output 10/14/17 10/15/17 10/15/17 18:59 06:59 18:59 Intake Total 1520 1455 Balance 1520 1455 Weight (lbs) 188 lb 195 lb Intake: Intake, IV Amount 1000 1000 D5-0.45NS 1,000 ml @ 100 1000 1000 mls/hr IV .Q10H [facility] Rx#: [id number] Tube Feeding 520 455 Other: # Voids 3 3 Weight Source Bedscale Bedscale Active Medications: Current Medications Acetaminophen (Tylenol) 650 mg PO Q4H PRN PRN Reason: PAIN/TEMP >100 Stop: 12/11/17 21:08 Al Hydrox/Mg Hydrox/Simethicone (Maalox) 30 ml PO Q6H PRN PRN Reason: Dyspepsia Stop: 12/11/17 20:43 Albuterol Sulfate (Albuterol 2.5mg/3ml Neb Ud) 2.5 mg HHN Q2HRT PRN PRN Reason: Shortness of Breath or Wheeze Stop: 12/11/17 20:43 Amiodarone HCl (Cordarone) 200 mg PO DAILY [facility] Stop: 12/14/17 08:59 Last Admin: 10/15/17 08:42 Dose: 200 mg Carvedilol (Coreg) 6.25 mg PO DAILY [facility] Stop: 12/14/17 11:59 Last Admin: 10/15/17 12:13 Dose: 6.25 mg Diltiazem HCl (Cardizem) 60 mg PO Q6HR [facility] Stop: 12/12/17 17:59 Last Admin: 10/15/17 12:13 Dose: 60 mg Docusate Sodium (Colace) 100 mg PO BID [facility] Stop: 12/12/17 08:59 Last Admin: 10/15/17 08:43 Dose: 100 mg Ferrous Sulfate (Iron) 450 mg GT DAILY [facility] Stop: 12/12/17 13:59 Last Admin: 10/15/17 08:43 Dose: 450 mg Guaifenesin (Robitussin) 200 mg PO Q4HR PRN PRN Reason: Cough or Congestion Stop: 12/11/17 20:43 Vancomycin HCl 1 gm/ Sodium (Chloride) 250 mls @ 165 mls/hr IV ONCE ONE Stop: 10/15/17 13:30 Last Admin: 10/15/17 11:07 Dose: 165 mls/hr Dextrose/Sodium Chloride (D5-0.45ns) 1,000 mls @ 70 mls/hr IV .[id number] [facility] Stop: 12/14/17 12:44 Lacosamide (Vimpat) 200 mg GT BID [facility] Stop: 12/12/17 16:59 Last Admin: 10/15/17 08:43 Dose: 200 mg Lorazepam (Ativan) 1 mg IV Q4H PRN; Protocol PRN Reason: Seizure Stop: 12/11/17 20:43 Metoprolol Tartrate (Lopressor) 5 mg IV Q4HR PRN PRN Reason: Tachycardia HR above 120 Stop: 12/12/17 15:59 Miscellaneous (Clinical Monitoring) 1 [facility] [place] DAILY PRN PRN Reason: RENAL Stop: 12/12/17 15:45 Ondansetron HCl (Zofran) 4 mg IV Q8H PRN PRN Reason: Nausea / Vomiting Stop: 12/11/17 20:46 Pantoprazole Sodium (Protonix) 40 mg GT DAILY [facility] Stop: 12/12/17 13:59 Last Admin: 10/15/17 08:43 Dose: 40 mg Quetiapine Fumarate (Seroquel) 25 mg GT DAILY [facility]; Protocol Stop: 12/12/17 08:59 Last Admin: 10/15/17 08:42 Dose: 25 mg Senna (Senna) 17.2 mg GT HS [facility] Stop: 12/11/17 20:59 Last Admin: 10/14/17 21:44 Dose: 17.2 mg Trimethoprim/Sulfamethoxazole (Bactrim Iv Per Pharmacy) 1 [facility] [place] PRN [facility] Stop: 12/14/17 12:44 General: weak HEENT: NC/AT, PERRLA Neck: Supple Lungs: CTAB Cardiovascular: RRR, Normal S1, Normal S2, without murmur Abdomen: soft, non-tender, non-distended, positive bowel sound Extremities: excoriation Neurological: unable to follow command Internal Medicine Assmt/Plan - Assessment Assessment: acute uti with proteus mirabilis esbl and provedencia stuariti sepsis possible pna tachycardia hx of afib acute renal insufficiency r/o dehydration leukopenia mild protein jessenia malnutrition cerebral palsy htn dm gerd seizures dementia - Plan Plan: switch ivabx to bactrim contiue ivf for hydration monitor HR follow up labs in am continue current plan of care Nutritional Asmnt/Malnutr-PDOC - Dietary Evaluation Malnutrition Findings (Please click <Entered> for more info): Nutritional Asmnt/Malnutrition Start: 10/13/17 16: 02 Text: Status: Complete Freq: Protocol: Document 10/13/17 16:44 LCLYNDONG (Rec: 10/13/17 17:06 MIKEAMISH [id number]) Nutritional Asmnt/Malnutrition Patient General Information Nutritional Screening High Risk Diagnosis UTI, Sepsis Pertinent Medical Hx/Surgical Hx HTN, DM, CAD, PUD/GERD, Seizure, demntia, CP, PEG/ Gtube Subjective Information Pt was resting in bed at time of visit, non-verbal. TF was off at this time. Per RN, Pt was tolerating TF well, no residual noted. Amilcar 11 noted. Current Diet Order/ Nutrition Support Osmolite 1.5 at 65ml x 20hr Pertinent Medications D5-0.45ns, colace, iron, levaquin, protonix, seroquel, senna Pertinent Labs 10/12 Na 149, Cl 108, BUN 79, Cr 2.7, glucose 138, Alb 3.2 Nutritional Hx/Data Height 5 ft 4 in Height (Calculated Centimeters) 162.6 Current Weight (lbs) 188 lb Weight (Calculated Kilograms) 85.3 Weight (Calculated Grams) 93703.4 [place] Body Weight 120 Body Mass Index (BMI) 32.2 Weight Status Obese GI Symptoms GI Symptoms None Last BM not indicated Difficult in: None Usual diet at home osmolite 1.5 at 65ml x 20hr at care facility per chart Skin Integrity/Comment: intact Estimated Nutritional Goals BEE in Kcals: Adj wt of IBW Calories/Kcals/Kg 25-30 based on 62kg Kcals Calculated 3593-1043 Protein: Adj wt of IBW Protein g/k.2 monitor renal labs Protein Calculated 74 Fluid: ml 1550-1860ml (1ml/kcal) Nutritional Problem 1. Problem Problem altered nutrition related lab Etiology electrolytes/fluid imbalance and hx of DM Signs/Symptoms: Na 149, Cl 108, BUN 79, Cr 2.7 , glucose 138 Malnutrition Alert Is there a minimum of two criteria No selected? Query Text:Check all the applicable criteria. A minimum of two criteria are recommended for diagnosis of either severe or non-severe malnutrition. Malnutrition Related to Morbid Obesity Malnutrition related to morbid obesity No Intervention/Recommendation Comments 1. Continue with current TF regimen. It provides 1950kcal, 82g protein, 990ml free water , meeting 100% of nutritional needs. If BUN continue high, will consider lower TF rate. 2. Monitor TF rate, tolerance, wt, skin integrity and labs 3. F/U as high risk in 2-3 days, 10/15-10/16 Expected Outcomes/Goals Expected Outcomes/Goals 1. Pt to meet at least 75% of nutritional needs via nutrition support with tolerance 2. Wt stability, skin to remain intact, labs to approach WNL.
[2017-10-16] MEDS: D5-0.45NS 1,000 ML IV SCH (03:16)
[2017-10-16] MEDS: Diltiazem 30 mg Tab PO SCH ×2 (05:42→11:23)
[2017-10-16 07:47] LABS: ANION GAP 7.6 (7.0-16.0); CALCIUM SERUM 9.4 mg/dL (8.6-10.3); CARBON DIOXIDE 29.5 mEq/L (21.0-31.0); CREATININE - SERUM 1.5 mg/dL (0.6-1.2); POTASSIUM SERUM 4.1 mEq/L (3.5-5.1)
[2017-10-16] MEDS: Pantoprazole 40 mg/Packet GT SCH (08:48)
[2017-10-16] MEDS: Ferrous Sulfate 300 MG/5 ML UDC GT SCH (08:48)
[2017-10-16] MEDS: Multivitamin w/ Minerals Tab GT SCH (08:49)
--- NOTE | 2017-10-16 16:43 | Internal Medicine Prog Note ---
Internal Medicine Subjective - Subjective Service Date: 10/16/17 ([id number]) Patient is:: awake, non-verbal Per staff patient has:: tolerating meds Internal Medicine Objective - Results Result Diagrams: 10/15/17 05:50 10/16/17 07:15 Recent Labs: Laboratory Last Values WBC 5.9 Th/cmm (4.8-10.8) 10/15/17 05:50 RBC 2.98 Mil/cmm (3.80-5.10) L 10/15/17 05:50 Hgb 10.0 gm/dL (12-16) L 10/15/17 05:50 Hct 29.1 % (41.0-60) L 10/15/17 05:50 MCV 97.7 fl (81-100) 10/15/17 05:50 MCH 33.5 pg (27.0-31.0) H 10/15/17 05:50 MCHC Differential 34.3 pg (28.0-36.0) 10/15/17 05:50 RDW 12.1 % (11.5-20.0) 10/15/17 05:50 Plt Count 129 Th/cmm (150-400) L 10/15/17 05:50 MPV 11.9 fl 10/15/17 05:50 Neutrophils % 84.0 % (40.0-80.0) H 10/15/17 05:50 Lymphocytes % 9.7 % (20.0-50.0) L 10/15/17 05:50 Monocytes % 2.8 % (2.0-10.0) 10/15/17 05:50 Eosinophils % 2.7 % (0.0-5.0) 10/15/17 05:50 Basophils % 0.8 % (0.0-2.0) 10/15/17 05:50 PT 9.9 SECONDS (9.5-11.5) 10/12/17 17:25 INR 0.95 (0.5-1.4) 10/12/17 17:25 PTT (Actin FS) 30.3 SECONDS (26.0-38.0) 10/12/17 17:25 Sodium 144 mEq/L (136-145) 10/16/17 07:15 Potassium 4.1 mEq/L (3.5-5.1) 10/16/17 07:15 Chloride 111 mEq/L (98-107) H 10/16/17 07:15 Carbon Dioxide 29.5 mEq/L (21.0-31.0) 10/16/17 07:15 Anion Gap 7.6 (7.0-16.0) 10/16/17 07:15 BUN 48 mg/dL (7-25) H 10/16/17 07:15 Creatinine 1.5 mg/dL (0.6-1.2) H 10/16/17 07:15 Est GFR ( Amer) 46.0 ml/min (>90) 10/16/17 07:15 Est GFR (Non-Af Amer) 38.0 ml/min 10/16/17 07:15 BUN/Creatinine Ratio 32.0 10/16/17 07:15 Glucose 133 mg/dL (70-105) H 10/16/17 07:15 Whole Bld Lactic Acid 1.17 mmol/L (0.60-1.99) 10/12/17 17:25 Calcium 9.4 mg/dL (8.6-10.3) 10/16/17 07:15 Magnesium 2.2 mg/dL (1.9-2.7) 10/14/17 04:45 Total Bilirubin 0.5 mg/dL (0.3-1.0) 10/12/17 17:25 AST 13 U/L (13-39) 10/12/17 17:25 ALT 15 U/L (7-52) 10/12/17 17:25 Alkaline Phosphatase 72 U/L (34-104) 10/12/17 17:25 Ammonia 39 umol/L (16-53) 10/14/17 06:00 Creatine Kinase 11 U/L (30-223) L 10/12/17 17:25 Troponin I 0.02 ng/mL (0.01-0.05) 10/12/17 17:25 B-Natriuretic Peptide 188.0 pg/mL (5.0-100.0) H 10/14/17 04:45 Total Protein 7.5 gm/dL (6.0-8.3) 10/12/17 17:25 Albumin 3.2 gm/dL (3.7-5.3) L 10/12/17 17:25 Globulin 4.3 gm/dL 10/12/17 17:25 Albumin/Globulin Ratio 0.7 (1.0-1.8) L 10/12/17 17:25 Amylase 35 U/L (29-103) 10/12/17 17:53 Lipase 26 U/L (11-82) 10/12/17 17:53 Serum , Qual NEGATIVE (NEGATIVE) 10/12/17 16:48 Urine Source CLEAN C 10/12/17 19:30 Urine Color YELLOW 10/12/17 19:30 Urine Clarity HAZY (CLEAR) 10/12/17 19:30 Urine pH 8.5 (4.6 - 8.0) 10/12/17 19:30 Ur Specific [place] 1.015 (1.005-1.030) 10/12/17 19:30 Urine Protein 100 mg/dL (NEGATIVE) H 10/12/17 19:30 Urine Glucose (UA) NEGATIVE mg/dL (NEGATIVE) 10/12/17 19:30 Urine Ketones NEGATIVE mg/dL (NEGATIVE) 10/12/17 19:30 Urine Blood LARGE (NEGATIVE) H 10/12/17 19:30 Urine Nitrate NEGATIVE (NEGATIVE) 10/12/17 19:30 Urine Bilirubin NEGATIVE (NEGATIVE) 10/12/17 19:30 Urine Urobilinogen 0.2 E.U./dL (0.2 - 1.0) 10/12/17 19:30 Ur Leukocyte Esterase LARGE (NEGATIVE) H 10/12/17 19:30 Urine RBC 5-10 /hpf (0-5) H 10/12/17 19:30 Urine WBC 10-25 /hpf (0-5) H 10/12/17 19:30 Ur Epithelial Cells FEW /lpf (FEW) 10/12/17 19:30 Urine Bacteria 3+ /hpf (NONE SEEN) H 10/12/17 19:30 Random Vancomycin 19.1 ug/mL (5.0-40.0) 10/15/17 05:50 - Physical Exam Vitals and I&O: Vital Signs Temp 97.4 F 10/16/17 13:39 Pulse 98 10/16/17 13:39 Resp 20 10/16/17 13:39 BP 125/66 10/16/17 13:39 Pulse Ox 100 10/16/17 13:39 Intake & Output 0810/16/17 10/16/17 18:59 06:59 18:59 Intake Total 880 1820 301 Balance 880 1820 301 Weight (lbs) 195 lb 195 lb Intake: Intake, IV Amount 100 1000 301 D5-0.45NS 1,000 ml @ 70 1000 301 mls/hr IV .[id number] [facility] Rx #:[id number] Meropenem 1 gm In Sodium 100 Chloride 0.9% 100 ml @ 100 mls/hr IV Q12H [facility] Rx #:[id number] Tube Feeding 780 520 Other 300 Other: # Voids 3 2 # Bowel Movements 1 1 Weight Source Estimated Bedscale General: weak HEENT: NC/AT, PERRLA Neck: Supple Lungs: CTAB Cardiovascular: RRR, Normal S1, Normal S2, without murmur Abdomen: soft, non-tender, non-distended, positive bowel sound Extremities: excoriation Neurological: unable to follow command Internal Medicine Assmt/Plan - Assessment Assessment: acute uti with proteus mirabilis esbl and provedencia stuariti sepsis possible pna tachycardia hx of afib acute renal insufficiency r/o dehydration leukopenia mild protein jessenia malnutrition cerebral palsy htn dm gerd seizures dementia - Plan Plan: switch ivabx to bactrim contiue ivf for hydration monitor HR follow up labs in am continue current plan of care Nutritional Asmnt/Malnutr-PDOC - Dietary Evaluation Malnutrition Findings (Please click <Entered> for more info): Nutritional Asmnt/Malnutrition Start: 10/13/17 16: 02 Text: Status: Complete Freq: Protocol: Document 10/13/17 16:44 LCHENG (Rec: 10/13/17 17:06 [email or web address] [email or web address]) Nutritional Asmnt/Malnutrition Patient General Information Nutritional Screening High Risk Diagnosis UTI, Sepsis Pertinent Medical Hx/Surgical Hx HTN, DM, CAD, PUD/GERD, Seizure, demntia, CP, PEG/ Gtube Subjective Information Pt was resting in bed at time of visit, non-verbal. TF was off at this time. Per RN, Pt was tolerating TF well, no residual noted. Amilcar 11 noted. Current Diet Order/ Nutrition Support Osmolite 1.5 at 65ml x 20hr Pertinent Medications D5-0.45ns, colace, iron, levaquin, protonix, seroquel, senna Pertinent Labs 10/12 Na 149, Cl 108, BUN 79, Cr 2.7, glucose 138, Alb 3.2 Nutritional Hx/Data Height 5 ft 4 in Height (Calculated Centimeters) 162.6 Current Weight (lbs) 188 lb Weight (Calculated Kilograms) 85.3 Weight (Calculated Grams) 25450.4 [place] Body Weight 120 Body Mass Index (BMI) 32.2 Weight Status Obese GI Symptoms GI Symptoms None Last BM not indicated Difficult in: None Usual diet at home osmolite 1.5 at 65ml x 20hr at care facility per chart Skin Integrity/Comment: intact Estimated Nutritional Goals BEE in Kcals: Adj wt of IBW Calories/Kcals/Kg 25-30 based on 62kg Kcals Calculated 5827-7830 Protein: Adj wt of IBW Protein g/k.2 monitor renal labs Protein Calculated 74 Fluid: ml 1550-1860ml (1ml/kcal) Nutritional Problem 1. Problem Problem altered nutrition related lab Etiology electrolytes/fluid imbalance and hx of DM Signs/Symptoms: Na 149, Cl 108, BUN 79, Cr 2.7 , glucose 138 Malnutrition Alert Is there a minimum of two criteria No selected? Query Text:Check all the applicable criteria. A minimum of two criteria are recommended for diagnosis of either severe or non-severe malnutrition. Malnutrition Related to Morbid Obesity Malnutrition related to morbid obesity No Intervention/Recommendation Comments 1. Continue with current TF regimen. It provides 1950kcal, 82g protein, 990ml free water , meeting 100% of nutritional needs. If BUN continue high, will consider lower TF rate. 2. Monitor TF rate, tolerance, wt, skin integrity and labs 3. F/U as high risk in 2-3 days, 10/15-10/16 Expected Outcomes/Goals Expected Outcomes/Goals 1. Pt to meet at least 75% of nutritional needs via nutrition support with tolerance 2. Wt stability, skin to remain intact, labs to approach WNL.
--- NOTE | 2017-10-16 22:16 | Discharge Summary ---
DATE OF DISCHARGE: 10/16/2017 FINAL DIAGNOSES: Acute urinary tract infection with Providencia stuartii and Proteus mirabilis and blood culture positive for Providencia stuartii; history of atrial fibrillation; acute renal insufficiency, rule out dehydration, which has been treated; mild protein-calorie malnutrition; cerebral palsy; hypertension; diabetes; gastroesophageal reflux disease; seizures and dementia. HISTORY OF PRESENT ILLNESS: A 56-year-old female who is a resident of [facility], has a 2-day history of fevers associated with weakness. For further management, the patient was admitted to the telemetry unit. PHYSICAL EXAMINATION: GENERAL: The patient is well developed, well nourished, no acute distress. VITAL SIGNS: Stable. HEENT: Head normocephalic and atraumatic. NECK: Supple. No mass. LUNGS: Clear bilaterally. CARDIOVASCULAR: Regular rate and rhythm. ABDOMEN: Soft and nontender. HOSPITAL COURSE: During the hospital stay, the patient was admitted to the telemetry unit. The patient had a urine culture done and positive for Providencia stuartii and Proteus mirabilis ESBL. The patient was kept on IV antibiotics and the patient also had a Cardiology consultation done due to tachycardia. The patient had a 2D echocardiogram done and impression is hypertrophy of the left ventricle, ejection fraction of 50% and left atrial enlargement. The patient did not have any fevers during the hospital stay. White count was within normal limits. For this reason, the patient was stable for discharge. CONDITION UPON DISCHARGE: Fair. DISPOSITION: [facility]. DISCHARGE MEDICATIONS: The patient to continue IV antibiotics of Merrem q. 12 x 7 days. JOB# [id number]
== END 2017-10-16 16:40 | DRG 720 ==
LOC: ER 16:32 → TELE 20:21
PROVIDERS: ADMIT Internal Medicine; ATTEND Internal Medicine
DX: A41.9 Sepsis, unspecified organism (principal); E87.0 Hyperosmolality and hypernatremia; I48.91 Unspecified atrial fibrillation; E44.1 Mild protein-calorie malnutrition; D50.9 Iron deficiency anemia, unspecified; F03.90 Unspecified dementia, unspecified severity, without behavioral disturbance, psychotic disturbance, mood disturbance, and anxiety; E11.9 Type 2 diabetes mellitus without complications; E86.0 Dehydration; N39.0 Urinary tract infection, site not specified; G80.9 Cerebral palsy, unspecified; I10 Essential (primary) hypertension; K27.9 Peptic ulcer, site unspecified, unspecified as acute or chronic, without hemorrhage or perforation; F32.9 Major depressive disorder, single episode, unspecified; I25.10 Atherosclerotic heart disease of native coronary artery without angina pectoris; M81.0 Age-related osteoporosis without current pathological fracture; B96.4 Proteus (mirabilis) (morganii) as the cause of diseases classified elsewhere; N28.9 Disorder of kidney and ureter, unspecified; G40.909 Epilepsy, unspecified, not intractable, without status epilepticus; K21.9 Gastro-esophageal reflux disease without esophagitis; Z68.32 Body mass index [BMI] 32.0-32.9, adult; Z88.5 Allergy status to narcotic agent; Z88.0 Allergy status to penicillin; Z82.49 Family history of ischemic heart disease and other diseases of the circulatory system; Z87.11 Personal history of peptic ulcer disease; Z68.33 Body mass index [BMI] 33.0-33.9, adult; Z23 Encounter for immunization
CPT/HCPCS: 36415-UA; 71045-TC; 80048-TC; 80053-TC; 80202-TC; 81001-TC; 82140-TC; 82150-TC; 82550-TC; 83605; 83690-TC; 83735-TC; 83880-TC; 84484-TC; 84703-TC; 85025-TC; 85610-TC; 85730-TC; 87086-90; 90779; 90799; 93005; 94760; 96375; A4217; J1956; J2060; J2185; J3370; J7030; J7040; Z7610